=== PATIENT | female | born 1955 | race Caucasian/White ===

== ENCOUNTER 2024-09-13 11:40 | Emergency (ER) | payer MEDICARE, OTHER | END 2024-09-13 13:45 | disposition home or self-care (01) | LOC: ERS 11:40 | DX: M25.562 Pain in left knee (principal); M25.462 Effusion, left knee; M25.472 Effusion, left ankle; I10 Essential (primary) hypertension; Z87.891 Personal history of nicotine dependence; Z79.899 Other long term (current) drug therapy; W54.1XXA Struck by dog, initial encounter; Y93.89 Activity, other specified; Y92.22 Religious institution as the place of occurrence of the external cause ==